=== PATIENT | male | born 1965 | race Caucasian/White ===

== ENCOUNTER 2024-12-19 15:17 | Emergency (ER) | payer OTHER, SELFPAY ==
[2024-12-19 15:28] VITALS: BP 213/91
--- NOTE | 2024-12-19 18:38 | ED.GENMED ---
History of Present Illness
<Conrado Ramírez PA-C - Last Filed: 12/19/24 20:11>
General
Chief Complaint: Vascular Symptoms
Source: patient
Time Seen by Provider: 12/19/24 18:08
History of Present Illness
History of Present Illness:
59-year-old male with no documented past medical history presenting to the emergency department for evaluation of left-sided ear/neck pain that has been gradually worsening over the course of the last few years stating that he was diagnosed with a
infection in his ear about 2 years ago, seen at a specialist through [facility] but due to an insurance issue was never able to complete the workup. Patient states that over time and over the last few days the pain is now radiating from the left side
of his face and ear down into his neck across his chest and into the left upper extremity. Patient does note this pain seems to worsen with movement. He denies any headaches, visual changes/diplopia, auditory changes, vertigo, tinnitus, back pain,
nausea, vomiting, fevers or infectious symptoms or any other concerns. Social history was noted for daily marijuana use. Family history noncontributory
Past History
<Conrado Ramírez PA-C - Last Filed: 12/19/24 20:11>
Past History
ED Past Medical History: Other (chronic neck and back pain)
Patient has exhibited threatening behavior?: No
Social History
Tobacco: Former smoker
Alcohol: Former (discontinued drinking 7 years ago)
Drug: Marijuana (used for pain; not prescribed)
Personal: Single
Living: with family
Employment: Disabled
Review of Systems
<Conrado Ramírez PA-C - Last Filed: 12/19/24 20:11>
Review of Systems
All Other Systems: ROS reviewed and negative except as documented in HPI and ROS
Phy Exam
<Conrado Ramírez PA-C - Last Filed: 12/19/24 20:11>
Physical Exam
Physical Exam:
GENERAL: Alert , in no apparent distress
HEAD: NCAT
EYE: clear conjunctiva
NECK: Supple, no significant adenopathy.
ENT: o/p clr, mmm. no trismus/stridor, tolerating secretions. TM clear bilateral. no effusions
CARDIAC: Regular rate and rhythm .
LUNGS: Clear breath sounds bilaterally, no acute respiratory distress, no wheezes/rales/rhonchi
ABDOMEN: Soft, without focal tenderness, no r/g, no cvat
NEUROLOGICAL: Alert and oriented
SKIN: Warm and dry, skin intact.
MUSCULOSKELETAL: No edema, well perfused.
PSYCH: Normal and appropriate interaction.
Scores
<Conrado Ramírez PA-C - Last Filed: 12/19/24 20:11>
Heart Failure Risk
Heart Failure Risk Score: Not Applicable
Heart Score for Chest Pain Patients
STEMI patient?: Not applicable
Withdrawal Assessment of Alcohol
Withdrawal Assessment Completed?: Not applicable
Course
<Conrado Ramírez PA-C - Last Filed: 12/19/24 20:11>
Orders/Labs/Results
Orders:
Orders
12/19/24 18:18
Electrocardiogram (*1) Urgent
Reason for Study: Hypertension, Benign
EKG- Treatment ONCE
12/19/24 18:23
CT Head & Neck Angio W/wo IV Urgent
Comment:
Reason For Exam: left sided ear/neck pain
12/19/24 18:51
Basic Metabolic Panel Urgent
Complete Blood Count/With Diff Urgent
Troponin I Urgent
Abnormal Lab Results
12/19/24
18:51
WBC 11.3 H 10^3/uL
(4.8-10.8)
RBC 4.59 L 10^6/uL
(4.70-6.10)
MCH 33.1 H pg
(27.0-31.0)
MPV 11.0 H fL
(7.4-10.4)
Absolute Neuts (auto) 6.8 H 10^3/uL
(1.4-6.5)
Absolute Lymphs (auto) 3.6 H 10^3/uL
(1.2-3.4)
Glucose 110 H mg/dl
(70-99)
Calcium 10.5 H mg/dl
(8.4-10.2)
12/19/24 18:51
12/19/24 18:51
Vital Signs
Initial and Last Documented VS:
Initial Vital Signs
Temp Pulse Resp BP Pulse Ox
98.1 F 105 18 213/91 98
12/19/24 15:28 12/19/24 15:28 12/19/24 15:28 12/19/24 15:28 12/19/24 15:28
Last Documented Vital Signs
Temp Pulse Resp BP Pulse Ox
98.1 F 53 12 213/91 96
12/19/24 15:28 12/19/24 19:15 12/19/24 19:00 12/19/24 15:28 12/19/24 19:15
Manager Regulatory consulted with Physician
Manager Regulatory consulted with physician?: Yes
Name of Physician Consulted: Rossy
<Zeus Blair, DO - Last Filed: 12/19/24 18:51>
Orders/Labs/Results
Orders:
Orders
12/19/24 18:18
Electrocardiogram (*1) Urgent
Reason for Study: Hypertension, Benign
EKG- Treatment ONCE
12/19/24 18:23
CT Head & Neck Angio W/wo IV Urgent
Comment:
Reason For Exam: left sided ear/neck pain
12/19/24 18:51
Basic Metabolic Panel Urgent
Complete Blood Count/With Diff Urgent
Troponin I Urgent
Abnormal Lab Results
12/19/24
18:51
WBC 11.3 H 10^3/uL
(4.8-10.8)
RBC 4.59 L 10^6/uL
(4.70-6.10)
MCH 33.1 H pg
(27.0-31.0)
MPV 11.0 H fL
(7.4-10.4)
Absolute Neuts (auto) 6.8 H 10^3/uL
(1.4-6.5)
Absolute Lymphs (auto) 3.6 H 10^3/uL
(1.2-3.4)
Glucose 110 H mg/dl
(70-99)
Calcium 10.5 H mg/dl
(8.4-10.2)
12/19/24 18:51
12/19/24 18:51
Vital Signs
Initial and Last Documented VS:
Initial Vital Signs
Temp Pulse Resp BP Pulse Ox
98.1 F 105 18 213/91 98
12/19/24 15:28 12/19/24 15:28 12/19/24 15:28 12/19/24 15:28 12/19/24 15:28
Last Documented Vital Signs
Temp Pulse Resp BP Pulse Ox
98.1 F 53 12 213/91 96
12/19/24 15:28 12/19/24 19:15 12/19/24 19:00 12/19/24 15:28 12/19/24 19:15
<Conrado Ramírez PA-C - Last Filed: 12/19/24 20:11>
MDM/Problems Addressed
Differential Diagnosis Includes:
chronic pain exacerbation, dissection, less concern for acute infectious process, HTN urgency/emergency, atypical ACS presentation
MDM/Problems Addressed:
59-year-old male presenting to the ER for evaluation of left-sided facial pain/ear pain that has been ongoing for the last few years, not really any different today although noting now pain is going into his neck and down towards his chest. It was
noted in triage patient to be significantly hypertensive and mildly tachycardic. Patient is otherwise in no acute distress and without any focal or lateralizing findings. Given his hypertension and somewhat worsening symptoms we will obtain CTA of
the head and neck to further evaluate and rule out dissection or vascular pathology as cause. Labs including troponin ordered. EKG ordered.
<Conrado Ramírez PA-C - Last Filed: 12/19/24 20:11>
*Radiology
Radiology exam reviewed: radiology read reviewed
*Pulse Oximetry
Patient hypoxic: no
*EKG
Heart Rate: 60
Rate: normal
Rhythm: sinus and PVC's
QRS Pattern: right bundle branch block
<Conrado Ramírez PA-C - Last Filed: 12/19/24 20:11>
Patient Management
Escalation/DeEscalation of care consider admission/obs:
Repeat blood pressure 190/100. Patient reports no change in symptoms. Labs and imaging reassuring. At this time I do think it is reasonable for patient to be discharged home. Patient already has a prearranged follow-up with his primary care
provider for this Sunday. I discussed with patient that he would likely need to be on antihypertensive medications given his blood pressure measurements here. I also prescribed patient information for ENT as patient still seems to be convinced
that he has infection within his ear but I did discuss with patient that he has no physical exam findings nor findings on CT that would lead us to believe there to be any infectious etiology. Patient aware of return precautions to the ER but
otherwise stable for discharge home.
ED Attending Note
<Conrado Ramírez PA-C - Last Filed: 12/19/24 20:11>
-
Portions of this chart may have been created with voice recognition software.� Occasional wrong word or��sound alike� substitutions may have occurred due to the inherent limitations of voice recognition software.
<Zeus Blair DO - Last Filed: 12/19/24 18:51>
ED Attending Note
Patient seen and examined by attending physician: Yes
ED Attending Note:
I have reviewed and agree with history and treatment plan by Benjamin Ramírez. My exam revealed 59-year-old male in no acute distress, hypertensive. No bruits auscultated, lungs clear. Patient reports chest pain ongoing for about 6 years. His left
ear pain and neck pain have been ongoing for the past [address] angiography head neck, EKG with no ischemia.
Discharge Plan
Departure
Patient Disposition: Home (Routine Discharge)
Date of Disposition: 12/19/24
Time of Disposition: 20:05
Patient with high blood pressure during this ER visit?: Yes
Discharge Problem:
Neck pain, Elevated blood pressure reading
Instructions: BLOOD PRESSURE
Prescriptions:
No Action
pantoprazole 40 MG tablet,delayed release (DR/EC)
40 mg PO DAILY Qty: 30 0RF
Referrals:
Jovi Samaniego DO [Family Provider] -
Flip Gatica MD [Active] - (ENT - Please call for appointment)
Interventions
Interventions:
*Risk Screen - Suicide Last Done: 12/19/24 15:28
*General Assessment Last Done: 12/19/24 18:50
*Neglect/Abuse Screening Last Done: 12/19/24 15:28
*ED- Fall Risk Assessment Last Done: 12/19/24 18:55
*ED COVID-19 Vaccine History Last Done: 12/19/24 18:55
ED- Cardiac Assessment Last Done: 12/19/24 18:55
ED- Pulmonary Assessment Last Done: 12/19/24 18:55
ED-Skin Assessment Last Done: 12/19/24 18:55
Discharge Date and Time
Print Language: [id number]
[2024-12-19 18:55] VITALS: BMI 27.2
[2024-12-19 19:04] LABS: % Basophils 1.3 % (0-2); % Eosinophils 1.6 % (0-6); % Immature Granulocytes 0.4 % (0-0.5); % Lymphocytes 31.9 % (20.5-51.1); % Monocytes 5.2 % (1.7-9.3); % Neutrophils 59.6 % (42.2-75.2); Absolute Basophils 0.2 10^3/uL (0-0.2); Absolute Eosinophils 0.2 10^3/uL (0-0.7); Absolute Lymphocytes 3.6 10^3/uL (1.2-3.4); Absolute Monocytes 0.6 10^3/uL (0.1-0.6); Absolute Neutrophils 6.8 10^3/uL (1.4-6.5); Hematocrit 43.1 % (39.0-52.0); Hemoglobin 15.2 g/dL (13.0-18.0); Mean Corp Hgb Conc. 35.3 g/dL (33.0-37.0); Mean Corpuscular Hgb 33.1 pg (27.0-31.0); Mean Corpuscular Volume 93.9 fL (80.0-94.0); Nucleated Red Blood Cells % 0 % (-); Platelet Count 247 10^3/uL (130-400); Red Blood Cell Count 4.59 10^6/uL (4.70-6.10); Red Cell Dist. Width 12.2 % (11.5-14.5); White Blood Cell Count 11.3 10^3/uL (4.8-10.8)
[2024-12-19 19:14] LABS: Blood Urea Nitrogen 10 mg/dl (9-20); Calcium 10.5 mg/dl (8.4-10.2); Carbon Dioxide 29 mmol/L (22-30); Chloride 101 mmol/L (98-107); Estimated Creatinine Clearance 102 ml/min; Glucose 110 mg/dl (70-99); Potassium 4.1 mmol/L (3.5-5.1); Sodium 144 mmol/L (135-145); eGFR > 60.00
[2024-12-19 19:21] VITALS: BP 193/101
[2024-12-19 19:27] LABS: Troponin I < 0.012 ng/ml
[2024-12-19 20:17] VITALS: BP 199/97
== END 2024-12-19 20:25 | disposition home or self-care (01) ==
LOC: EMR 15:17
PROVIDERS: Physician Assistant Medical; EMERGENCY PHYSICIAN Emergency Medicine; FAMILY PHYSICIAN Family Medicine
DX: M54.2 Cervicalgia (principal); I10 Essential (primary) hypertension; H92.02 Otalgia, left ear; R07.9 Chest pain, unspecified; I45.10 Unspecified right bundle-branch block; I49.3 Ventricular premature depolarization; Z87.891 Personal history of nicotine dependence
CPT/HCPCS: 99284; 70496; 70498; 80048; 84484; 85025; 93005; Q9967